=== PATIENT | female | born 1950 | race Caucasian/White ===

== ENCOUNTER 2017-09-13 15:47 | Inpatient (IN) | payer OTHER ==
[~2017-09-13] VITALS: Ht 167.6 cm; Wt 86.2 kg
[2017-09-13 17:17] LABS: BASOPHILS % 0.3 % (0.0-2.0); HEMATOCRIT. 40.5 % (36.0-48.0); HEMOGLOBIN. 13.2 g/dL (12.0-16.0); LYMPHOCYTES % 16.4 % (20.0-50.0); MEAN CORPUSCULAR HEMOGLOBIN 28.3 pg (28.0-32.0); MEAN CORPUSCULAR VOLUME 86.7 fL (81.0-99.0); MEAN PLATELET VOLUME 7.5 fl (7.4-10.4); MONOCYTES % 6.2 % (2.0-8.0); NEUTROPHILS % 77.1 % (40.0-76.0); PLATELET 323 x1000/uL (130-400); RED BLOOD CELL COUNT 4.67 mill/uL (4.2-5.4); RED CELL DISTRIBUTION WIDTH 14.8 % (11.6-14.6)
[2017-09-13 17:19] LABS: CHLORIDE 107 mEq/L (98-107)
[2017-09-13 17:21] LABS: INR 1.1; PROTHROMBIN TIME 11.2 sec (9.4-11.6)
[2017-09-13] MEDS ORDERED: FAMOTIDINE 20MG/2ML VIAL IV STA (19:46)
[2017-09-13] MEDS ORDERED: ONDANSETRON HCL 4MG/2ML VIAL IV STA (19:46)
[2017-09-13] MEDS ORDERED: SODIUM CHLORIDE 0.9% 1,000 ML IV ONE (19:46)
[2017-09-13] MEDS ORDERED: MORPHINE SULFATE 4 MG/ML CPJ (NOT FOR IM USE) IV STA (19:46)
[2017-09-13] MEDS ORDERED: PIPERACILLIN/TAZ 3.375G PREMIX 50 ML IV ONE (20:00)
[2017-09-13] MEDS ORDERED: SODIUM CHLORIDE 0.9% 1,000 ML IV SCH (21:27)
[2017-09-13] MEDS ORDERED: NA PHOS,M-B/NA PHOS,DI-BA ENEMA 118ML PR PRN ×2 (21:30→23:45)
[2017-09-13] MEDS ORDERED: GUAIFENESIN 200MG/10ML SUGAR FREE UDC PO PRN (21:30)
[2017-09-13] MEDS ORDERED: LORAZEPAM 0.5MG TABLET PO PRN (21:30)
[2017-09-13] MEDS ORDERED: FENTANYL CITRATE/PF 50MCG/ML 2ML VIAL IV ONE (21:30)
[2017-09-13] MEDS ORDERED: ZOLPIDEM TARTRATE 5MG TABLET PO PRN (21:30)
[2017-09-13] MEDS ORDERED: NITROGLYCERIN 0.4MG TABLET SL SL PRN (21:30)
[2017-09-13] MEDS ORDERED: DIPHENHYDRAMINE 50MG/ML VIAL IV PRN (21:30)
[2017-09-13] MEDS ORDERED: MAGNESIUM/ALUMINUM HYDROXIDE/SIMETHICONE 30ML UDC PO PRN (21:30)
[2017-09-13] MEDS ORDERED: ONDANSETRON HCL 4MG/2ML VIAL IV ONE (21:30)
[2017-09-13] MEDS ORDERED: CLONIDINE 0.1MG TABLET PO PRN (21:30)
[2017-09-13] MEDS ORDERED: ONDANSETRON HCL 4MG/2ML VIAL IV PRN ×2 (21:30→23:45)
[2017-09-13] MEDS ORDERED: MORPHINE SULFATE 2 MG/ML CPJ (NOT FOR IM USE) IV PRN (21:30)
[2017-09-13] MEDS ORDERED: ENOXAPARIN 40MG/0.4ML SYR SUBCUT SCH ×2 (21:30→23:45)
[2017-09-13] MEDS ORDERED: IPRATROPIUM/ALBUTEROL 0.5-3(2.5)MG/3ML NEB INH PRN (21:30)
[2017-09-13 21:53] LABS: AMYLASE 3767 IU/L (25-115)
[2017-09-13 22:24] LABS: CLARITY URINE CLEAR (CLEAR); COLOR URINE YELLOW (YELLOW); KETONES URINE 1+ (NEGATIVE); LEUKOCYTE ESTERASE URINE TRACE (NEGATIVE); NITRITE URINE NEGATIVE (NEGATIVE); OCCULT BLOOD URINE NEGATIVE (NEGATIVE); PROTEIN URINE 1+ (NEGATIVE); SPECIFIC GRAVITY URINE 1.025 (1.005-1.030)
[2017-09-13] MEDS ORDERED: PIPERACILLIN/TAZ 3.375G PREMIX 50 ML IV SCH (22:30)
[2017-09-13] MEDS ORDERED: MORPHINE SULFATE 4 MG/ML CPJ (NOT FOR IM USE) IV PRN (22:30)
[2017-09-13 23:30] VITALS: BP 135/75
[2017-09-14] VITALS (9 sets, daily range): BP systolic 110–157; BP diastolic 59–90
[2017-09-14] MEDS: ONDANSETRON 4MG ODT PO PRN (01:06)
[2017-09-14] MEDS: MORPHINE SULFATE 4 MG/ML CPJ (NOT FOR IM USE) IV PRN ×4 (01:07→16:44)
[2017-09-14] MEDS: SODIUM CHLORIDE 0.9% 1,000 ML IV SCH ×4 (01:14→17:51)
[2017-09-14 01:34] LABS: CREATINE KINASE 185 IU/L (26-192)
[2017-09-14 01:35] LABS: CREATINE KINASE MB FRACTION 3.7 ng/mL (0.5-3.6)
[2017-09-14] MEDS: PIPERACILLIN/TAZ 3.375G PREMIX 50 ML IV SCH ×3 (06:01→21:14)
[2017-09-14] MEDS: METOPROLOL TARTRATE 25MG TABLET PO SCH ×2 (09:00→21:15)
[2017-09-14] MEDS ORDERED: LISINOPRIL 20MG TABLET PO SCH (09:00)
[2017-09-14] MEDS ORDERED: ENOXAPARIN 30MG/0.3ML SYR SUBCUT SCH (09:00)
[2017-09-14] MEDS ORDERED: PANTOPRAZOLE SODIUM 40 MG/VIAL IV SCH (09:00)
[2017-09-14] MEDS ORDERED: METOPROLOL TARTRATE 25MG TABLET PO SCH (09:00)
[2017-09-14] MEDS: PANTOPRAZOLE SODIUM 40 MG/VIAL IV SCH (11:34)
[2017-09-14] MEDS: LISINOPRIL 20MG TABLET PO SCH ×2 (11:36→21:14)
[2017-09-14] MEDS: DOCUSATE SODIUM 100MG CAPSULE PO PRN (11:36)
[2017-09-14 16:39] LABS: BASOPHILS % 0.2 % (0.0-2.0); HEMATOCRIT. 39.4 % (36.0-48.0); HEMOGLOBIN. 12.8 g/dL (12.0-16.0); LYMPHOCYTES % 7.5 % (20.0-50.0); MEAN CORPUSCULAR HEMOGLOBIN 28.1 pg (28.0-32.0); MEAN CORPUSCULAR VOLUME 86.5 fL (81.0-99.0); MEAN PLATELET VOLUME 7.3 fl (7.4-10.4); MONOCYTES % 5.2 % (2.0-8.0); NEUTROPHILS % 87.1 % (40.0-76.0); PLATELET 257 x1000/uL (130-400); RED BLOOD CELL COUNT 4.56 mill/uL (4.2-5.4)
[2017-09-14 17:05] LABS: CHLORIDE 109 mEq/L (98-107)
[2017-09-14 17:54] LABS: AMYLASE 451 IU/L (25-115)
[2017-09-14] MEDS: ZOLPIDEM TARTRATE 5MG TABLET PO PRN (21:15)
[2017-09-14] MEDS: ATORVASTATIN CALCIUM 10MG TABLET PO SCH (21:15)
[2017-09-15] VITALS: BP 135/70
[2017-09-15] MEDS: SODIUM CHLORIDE 0.9% 1,000 ML IV SCH ×4 (01:51→19:35)
[2017-09-15] MEDS: ONDANSETRON 4MG ODT PO PRN (01:51)
[2017-09-15] MEDS: PIPERACILLIN/TAZ 3.375G PREMIX 50 ML IV SCH ×4 (01:58→20:31)
[2017-09-15] MEDS: MORPHINE SULFATE 4 MG/ML CPJ (NOT FOR IM USE) IV PRN ×2 (06:08→20:29)
[2017-09-15 07:03] LABS: HEMOGLOBIN 12.4 g/dL (12.0-16.0); MEAN CORPUSCULAR HEMOGLOBIN 28.2 pg (28.0-32.0); MEAN CORPUSCULAR VOLUME 86.4 fL (81.0-99.0); PLATELET 239 x1000/uL (130-400)
[2017-09-15 08:30] VITALS: BP 151/69
[2017-09-15] MEDS: LISINOPRIL 20MG TABLET PO SCH ×2 (09:13→20:40)
[2017-09-15] MEDS: PANTOPRAZOLE SODIUM 40 MG/VIAL IV SCH (09:13)
[2017-09-15] MEDS: METOPROLOL TARTRATE 25MG TABLET PO SCH ×2 (09:13→20:39)
[2017-09-15] MEDS: ENOXAPARIN 40MG/0.4ML SYR SUBCUT SCH (09:14)
[2017-09-15 11:22] LABS: CHLORIDE 109 mEq/L (98-107)
[2017-09-15 11:27] LABS: AMYLASE 480 IU/L (25-115)
[2017-09-15 12:00] VITALS: BP 149/68
[2017-09-15] MEDS ORDERED: POTASSIUM CHLORIDE 20MEQ TABLET SR PO SCH (12:30)
[2017-09-15 16:00] VITALS: BP 146/67
[2017-09-15] MEDS: ZOLPIDEM TARTRATE 5MG TABLET PO PRN (20:33)
[2017-09-15] MEDS: ATORVASTATIN CALCIUM 10MG TABLET PO SCH (20:39)
[2017-09-16] VITALS: BP 140/65
[2017-09-16] MEDS: SODIUM CHLORIDE 0.9% 1,000 ML IV SCH ×2 (02:15→08:55)
[2017-09-16 04:00] VITALS: BP 135/70
[2017-09-16] MEDS: MORPHINE SULFATE 4 MG/ML CPJ (NOT FOR IM USE) IV PRN ×3 (05:14→23:12)
[2017-09-16] MEDS: PIPERACILLIN/TAZ 3.375G PREMIX 50 ML IV SCH ×4 (05:14→20:38)
[2017-09-16 06:36] LABS: HEMATOCRIT 33.4 % (36.0-48.0); HEMOGLOBIN 10.9 g/dL (12.0-16.0); MEAN CORPUSCULAR HEMOGLOBIN 28.4 pg (28.0-32.0); MEAN CORPUSCULAR VOLUME 86.8 fL (81.0-99.0); PLATELET 202 x1000/uL (130-400); RED BLOOD CELL COUNT 3.85 mill/uL (4.2-5.4); RED CELL DISTRIBUTION WIDTH 14.9 % (11.6-14.6)
[2017-09-16 06:56] LABS: CHLORIDE 103 mEq/L (98-107)
[2017-09-16 07:16] LABS: AMYLASE 175 IU/L (25-115)
[2017-09-16 08:00] VITALS: BP 150/62
[2017-09-16] MEDS: PANTOPRAZOLE SODIUM 40 MG/VIAL IV SCH (09:27)
[2017-09-16] MEDS: ENOXAPARIN 40MG/0.4ML SYR SUBCUT SCH (09:28)
[2017-09-16] MEDS: METOPROLOL TARTRATE 25MG TABLET PO SCH ×2 (09:40→20:41)
[2017-09-16] MEDS: LISINOPRIL 20MG TABLET PO SCH ×2 (09:40→20:42)
[2017-09-16] MEDS: TRAMADOL 50MG TABLET PO PRN ×2 (09:40→22:51)
[2017-09-16 12:00] VITALS: BP 143/71
[2017-09-16] MEDS ORDERED: SUCRALFATE 1 G/10 ML UDC PO NR (13:00)
[2017-09-16] MEDS: DOCUSATE SODIUM 100MG CAPSULE PO PRN ×2 (13:10→22:53)
[2017-09-16 17:18] LABS: HEMATOCRIT 32.8 % (36.0-48.0); HEMOGLOBIN 10.7 g/dL (12.0-16.0); MEAN CORPUSCULAR VOLUME 86.2 fL (81.0-99.0); PLATELET 205 x1000/uL (130-400); RED BLOOD CELL COUNT 3.81 mill/uL (4.2-5.4); RED CELL DISTRIBUTION WIDTH 14.6 % (11.6-14.6)
[2017-09-16] MEDS: SUCRALFATE 1 G/10 ML UDC PO SCH ×2 (19:30→20:43)
[2017-09-16 20:00] VITALS: BP 152/71
[2017-09-16] MEDS: ATORVASTATIN CALCIUM 10MG TABLET PO SCH (20:38)
[2017-09-16] MEDS: PANTOPRAZOLE 40MG DR TABLET PO SCH (20:42)
[2017-09-16] MEDS: MEROPENEM 1,000 MG in SODIUM CHLORIDE 0.9% 100 ML IV SCH (22:49)
[2017-09-17] VITALS: BP 137/78
[2017-09-17] MEDS: MORPHINE SULFATE 4 MG/ML CPJ (NOT FOR IM USE) IV PRN (02:22)
[2017-09-17] MEDS: PIPERACILLIN/TAZ 3.375G PREMIX 50 ML IV SCH ×3 (02:22→13:58)
[2017-09-17 04:00] VITALS: BP 135/84
[2017-09-17] MEDS: SODIUM CHLORIDE 0.9% 1,000 ML IV SCH ×3 (07:33→18:37)
[2017-09-17 08:00] VITALS: BP 154/70
[2017-09-17] MEDS: ENOXAPARIN 40MG/0.4ML SYR SUBCUT SCH (08:49)
[2017-09-17] MEDS: PANTOPRAZOLE 40MG DR TABLET PO SCH (08:50)
[2017-09-17] MEDS: LISINOPRIL 20MG TABLET PO SCH ×2 (08:50→21:05)
[2017-09-17] MEDS: METOPROLOL TARTRATE 25MG TABLET PO SCH ×2 (08:50→21:05)
[2017-09-17] MEDS: SUCRALFATE 1 G/10 ML UDC PO SCH ×4 (08:53→21:01)
[2017-09-17 09:32] LABS: HEMATOCRIT 33.5 % (36.0-48.0); MEAN CORPUSCULAR HEMOGLOBIN 28.1 pg (28.0-32.0); MEAN CORPUSCULAR VOLUME 85.9 fL (81.0-99.0); PLATELET 221 x1000/uL (130-400); RED CELL DISTRIBUTION WIDTH 14.7 % (11.6-14.6)
[2017-09-17] MEDS: MEROPENEM 1,000 MG in SODIUM CHLORIDE 0.9% 100 ML IV SCH ×2 (09:44→21:01)
[2017-09-17 11:32] LABS: CHLORIDE 98 mEq/L (98-107)
[2017-09-17 11:35] LABS: BG CARBOXYHEMOGLOBIN 0.3 % (0.5-1.5); BG DEOXYHEMOGLOBIN 8.3 % (0.0-5.0); BG FRACTION INSPIRED OXYGEN 21; BG HCO3 ACT 26.5 mmol/L (22.0-26.0); BG METHEMOGLOBIN 0.1 % (0.0-1.5); BG OXYGEN SATURATION 91.7 % (92.0-98.5); BG OXYHEMOGLOBIN 91.3 % (94.0-97.0); BG PCO2 41.2 mmHg (35.0-45.0); BG PH 7.427 (7.350-7.450); BG PO2 59.9 mmHg (75.0-100.0); BG SAMPLE SITE RIGHT RADIAL; BG TOTAL HEMOGLOBIN 11.3 g/dL (12.0-18.0); BG VENT MODE ROOM AIR
[2017-09-17 12:00] VITALS: BP 142/81
[2017-09-17] MEDS ORDERED: BISACODYL 10MG SUPP PR NR (14:25)
[2017-09-17] MEDS ORDERED: POTASSIUM CHLORIDE 20MEQ TABLET SR PO NR ×2 (14:30)
[2017-09-17 16:00] VITALS: BP 146/71
[2017-09-17 20:00] VITALS: BP 130/64
[2017-09-17] MEDS: ATORVASTATIN CALCIUM 10MG TABLET PO SCH (21:00)
[2017-09-17] MEDS: FAMOTIDINE 20MG/2ML VIAL IV SCH (21:01)
[2017-09-17] MEDS: ACETAMINOPHEN 325MG TABLET PO PRN (21:02)
[2017-09-18] VITALS: BP 165/79
[2017-09-18] MEDS: MORPHINE SULFATE 4 MG/ML CPJ (NOT FOR IM USE) IV PRN ×2 (02:16→22:49)
[2017-09-18] MEDS: SODIUM CHLORIDE 0.9% 1,000 ML IV SCH ×3 (03:49→23:51)
[2017-09-18 04:00] VITALS: BP 135/63
[2017-09-18 07:00] LABS: HEMATOCRIT 30.6 % (36.0-48.0); HEMOGLOBIN 10.1 g/dL (12.0-16.0); MEAN CORPUSCULAR HEMOGLOBIN 28.2 pg (28.0-32.0); MEAN CORPUSCULAR VOLUME 85.6 fL (81.0-99.0); PLATELET 230 x1000/uL (130-400); RED BLOOD CELL COUNT 3.57 mill/uL (4.2-5.4); RED CELL DISTRIBUTION WIDTH 14.6 % (11.6-14.6)
[2017-09-18 07:12] LABS: CHLORIDE 101 mEq/L (98-107)
[2017-09-18 07:48] LABS: BG BASE EXCESS 1.8 mmol/L (-2.0-2.0); BG CARBOXYHEMOGLOBIN 0.7 % (0.5-1.5); BG DEOXYHEMOGLOBIN 6.2 % (0.0-5.0); BG HCO3 ACT 25.4 mmol/L (22.0-26.0); BG METHEMOGLOBIN 0.1 % (0.0-1.5); BG OXYGEN SATURATION 93.8 % (92.0-98.5); BG PCO2 36.4 mmHg (35.0-45.0); BG PH 7.462 (7.350-7.450); BG PO2 66.4 mmHg (75.0-100.0); BG SAMPLE SITE RIGHT RADIAL; BG TOTAL HEMOGLOBIN 11.2 g/dL (12.0-18.0); BG VENT MODE ROOM AIR
[2017-09-18 08:00] VITALS: BP 146/61
[2017-09-18] MEDS: SUCRALFATE 1 G/10 ML UDC PO SCH ×4 (08:35→20:48)
[2017-09-18] MEDS: METOPROLOL TARTRATE 25MG TABLET PO SCH ×2 (08:36→20:47)
[2017-09-18] MEDS: LISINOPRIL 20MG TABLET PO SCH ×2 (08:37→20:47)
[2017-09-18] MEDS: FAMOTIDINE 20MG/2ML VIAL IV SCH ×2 (08:38→20:47)
[2017-09-18] MEDS: ENOXAPARIN 40MG/0.4ML SYR SUBCUT SCH (08:43)
[2017-09-18] MEDS: MEROPENEM 1,000 MG in SODIUM CHLORIDE 0.9% 100 ML IV SCH ×2 (08:44→17:32)
[2017-09-18] MEDS: ACETAMINOPHEN 325MG TABLET PO PRN ×3 (08:50→20:31)
[2017-09-18] MEDS ORDERED: BISACODYL 10MG SUPP PR PRN (09:00)
[2017-09-18] MEDS ORDERED: POTASSIUM CHLORIDE 20MEQ TABLET SR PO NR (10:45)
[2017-09-18] MEDS ORDERED: POLYETHYLENE GLYCOL 3350 (17GM) 1 DOSE PACK PO SCH (13:45)
[2017-09-18] MEDS ORDERED: LIDOCAINE HCL/PF 1% 2ML VIAL ONE (13:50)
[2017-09-18] MEDS: DOCUSATE SODIUM 250MG CAPSULE PO SCH (17:32)
[2017-09-18 20:03] LABS: HEMATOCRIT 31.1 % (36.0-48.0); HEMOGLOBIN 10.2 g/dL (12.0-16.0); MEAN CORPUSCULAR VOLUME 85.7 fL (81.0-99.0); PLATELET 227 x1000/uL (130-400); RED BLOOD CELL COUNT 3.63 mill/uL (4.2-5.4); RED CELL DISTRIBUTION WIDTH 14.9 % (11.6-14.6)
[2017-09-18] MEDS: ATORVASTATIN CALCIUM 10MG TABLET PO SCH (20:47)
[2017-09-18 20:50] VITALS: BP 136/62
[2017-09-19 00:35] VITALS: BP 102/49
[2017-09-19] MEDS: MEROPENEM 1,000 MG in SODIUM CHLORIDE 0.9% 100 ML IV SCH ×3 (01:20→17:45)
[2017-09-19 04:00] VITALS: BP 120/56
[2017-09-19] MEDS: ACETAMINOPHEN 325MG TABLET PO PRN ×3 (04:54→14:32)
[2017-09-19 06:47] LABS: HEMATOCRIT 30.2 % (36.0-48.0); HEMOGLOBIN 9.9 g/dL (12.0-16.0); MEAN CORPUSCULAR HEMOGLOBIN 28.4 pg (28.0-32.0); MEAN CORPUSCULAR VOLUME 86.1 fL (81.0-99.0); PLATELET 217 x1000/uL (130-400)
[2017-09-19 08:00] VITALS: BP 120/53
[2017-09-19] MEDS: ENOXAPARIN 40MG/0.4ML SYR SUBCUT SCH (08:42)
[2017-09-19] MEDS: FAMOTIDINE 20MG/2ML VIAL IV SCH (08:45)
[2017-09-19] MEDS: DOCUSATE SODIUM 250MG CAPSULE PO SCH (08:45)
[2017-09-19] MEDS: SUCRALFATE 1 G/10 ML UDC PO SCH ×3 (08:52→17:44)
[2017-09-19] MEDS: LISINOPRIL 20MG TABLET PO SCH (08:52)
[2017-09-19] MEDS: METOPROLOL TARTRATE 25MG TABLET PO SCH (08:52)
[2017-09-19] MEDS: SODIUM CHLORIDE 0.9% 1,000 ML IV SCH (10:30)
[2017-09-19 10:55] LABS: CHLORIDE 102 mEq/L (98-107)
[2017-09-19] MEDS ORDERED: POTASSIUM CHLORIDE 20MEQ TABLET SR PO SCH (11:30)
[2017-09-19 12:00] VITALS: BP 138/59
[2017-09-19 16:00] VITALS: BP 128/61
[2017-09-19 19:40] VITALS: BP 145/70
== END 2017-09-19 20:40 | disposition home or self-care (01) | DRG 444 ==
LOC: ER 17:13 → 7WST 21:04 → EDBEDREQ 21:09 → SUPCPDRO 21:27 → ENRESERV 22:01 → ER 23:36
PROVIDERS: ADMIT Internal Medicine; ATTEND Internal Medicine
DX: K83.0 Cholangitis (principal); K85.90 Acute pancreatitis without necrosis or infection, unspecified; N39.0 Urinary tract infection, site not specified; J90 Pleural effusion, not elsewhere classified; R18.8 Other ascites; R65.10 Systemic inflammatory response syndrome (SIRS) of non-infectious origin without acute organ dysfunction; I10 Essential (primary) hypertension; E78.5 Hyperlipidemia, unspecified; D64.9 Anemia, unspecified; E66.9 Obesity, unspecified; E87.6 Hypokalemia; E88.09 Other disorders of plasma-protein metabolism, not elsewhere classified; K21.9 Gastro-esophageal reflux disease without esophagitis; K59.00 Constipation, unspecified; E11.65 Type 2 diabetes mellitus with hyperglycemia; R09.02 Hypoxemia; K29.70 Gastritis, unspecified, without bleeding; Z68.30 Body mass index [BMI] 30.0-30.9, adult
CPT/HCPCS: 36415; 36600; 71045; 74018; 74176; 74181; 76705; 80048; 80053; 80061; 81003; 82150; 82375; 82550; 82553; 82787; 82805; 83036; 83605; 83690; 83880; 84145; 84484; 85025; 85027; 85610; 87040; 87086; 93005; 93306; 93970; 96361; 96365; 96375; 96376; 99291; C1893; C9113; J1200; J1650; J2185; J2270; J2405; J2543; J3010; J3490; J7030; J7050; Q0162